=== PATIENT | male | born 1970 | race Caucasian/White ===

== ENCOUNTER 2016-09-14 07:41 | Inpatient (IN) | payer MEDICARE, MEDICAID ==
[~2016-09-14] VITALS: Ht 177.8 cm; Wt 258.0 kg
[2016-09-14] VITALS (11 sets, daily range): BP systolic 108–167; BP diastolic 74–108; PULSE 86–131; RESP 9–27; O2SAT 88–97
[~2016-09-14 07:41] MED LIST: LOV100 SUBQ; LOV60 SUBQ; METO-272 PO; WARF6TAB6 PO
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
[2016-09-14] MEDS ORDERED: Heparin 25K Unit/500mL 0.45 NS 25,000 UNIT in IV Premix 1 EACH IV ONE ×2 (07:55→10:10)
[2016-09-14] MEDS ORDERED: Heparin 5,000 Unit/mL Inj IVPUSH ONE (07:55)
[2016-09-14] MEDS ORDERED: Ondansetron 2 mg/mL 2 mL Inj IVPUSH ONE (08:00)
[2016-09-14] MEDS ORDERED: 0.9% Sodium Chloride 1,000 ML ONE (08:05)
[2016-09-14 08:28] LABS: BASOPHILS % (AUTO) 0.4 % (0-3); EOSINOPHILS % (AUTO) 3.6 % (0-5); MONOCYTES % (AUTO) 3.9 % (4-12); Mean Corpuscular Hemoglobin 30.8 pg (27.0-35.0); Mean Corpuscular Volume 91.3 fL (81-100); Platelet Count 361 bil/L (150-400)
[2016-09-14 08:45] LABS: D-DIMER 1.6 mg/L (<0.50); INR 0.96 ratio
[2016-09-14 09:02] LABS: TROPONIN T < 0.010 ug/L (0.0-0.011)
[2016-09-14 09:04] LABS: Magnesium 2.1 mg/dL (1.6-2.6)
--- NOTE | 2016-09-14 09:37 | DRSVH ---
PROCEDURE: X-RAY CHEST ONE VIEW, PORTABLE ([id number]) INDICATIONS: chest pain TECHNIQUE: One view of the chest was acquired. COMPARISON: [facility], CR, XR CHEST 1VW (PORTABLE), 07/20/2016, 12:20. FINDINGS: Surgical changes and devices: None. Lungs and pleura: Limited exam. Within these limits, no pleural effusions or pneumothorax. Lungs a re clear. Mediastinum: Mediastinal contours appear normal. Heart size is normal. Bones and chest wall: No suspicious bony lesions. Overlying soft tissues appear unremarkable. IMPRESSION: Limited exam secondary to patient's body habitus and low lung volumes demonstrates no def inite acute cardiopulmonary process. Dictated by: Domenico Walls RR Interpreted: Marlen Shankar MD on 09/14/2016 at 9:37 Transcribed by: JEFFREY on 09/14/2016 at 9:37 Approved by: Marlen Shankar M.D. on 09/14/2016 at 16:12
[2016-09-14] MEDS: HYDROmorphone 0.5 mg/0.5 mL iSecure Syringe IVPUSH PRN (10:06)
[2016-09-14] MEDS ORDERED: Ondansetron 2 mg/mL 2 mL Inj IVPUSH PRN (10:10)
[2016-09-14] MEDS ORDERED: Polyethylene Glycol (PEG) 17 Gm Powder PO PRN (10:10)
[2016-09-14] MEDS ORDERED: Alum-Mag Hydrox-Simeth 30 mL Suspension PO PRN (10:10)
[2016-09-14] MEDS ORDERED: HYDROmorphone 1 mg/mL Inj IVPUSH ONE (10:50)
--- NOTE | 2016-09-14 11:30 | DRSVH ---
[facility] [address] [place] [address] Echocardiogram Report Name: ESEQUIEL SEBASTIAN RStudy Date: 09/14/2016 Height: 70 in Hospital Exam Location: [facility] Weight: 551 lb Gender: Male BSA: 3.2 m2 : 1970 Age: 46 yrs BP: 128/89 m mHg Reason For Study: CHEST PAIN, PULMONARY EMBOLISM Performed By: George Chilel Referring Physician: JACY PONCE Interpretation Summary No meaningful data could be acquired secondary to patient's body habitus. Patient said he had an allergic reaction to Definity/perflutren last time it was used. Therefore, it was not used on today's exam. Procedure: A two-dimensional transthoracic echocardiogram with color flow and Doppler was performed in limited views only. The study quality was technically difficult. The patient was in sinus tachycardia with heart rates between 101-106 bpm during the exam. Electronically signed by: Robby Martin on Reading Physician:09/14/2016 11:29 AM
--- NOTE | 2016-09-14 11:42 | DRSVH ---
PROCEDURE: US VENOUS LEG DUPLEX BILATERAL INDICATIONS: eval for DVT, CP +Dimer TECHNIQUE: Real-time imaging, as well as color and pulse Doppler interrogation, were performed of the deep veins of both legs from the inguinal ligament to the popliteal fossa. COMPARISON: [facility], US, US VENOUS LEG DPLX BILAT, 07/20/2016, 16:56. FINDINGS: The deep veins are normally compressible, and free of intraluminal thrombus. Color and pu lse Doppler demonstrate normal phasic intravascular flow. There is normal augmentation response to d istal compression maneuver. IMPRESSION: No deep venous thrombosis identified within either the left or right lower extremities. Dictated by: Domenico RAPP Interpreted: Marlen Shankar MD on 09/14/2016 at 11:41 Transcribed by: JEFFREY on 09/14/2016 at 11:41 Approved by: Marlen Shankar M.D. on 09/14/2016 at 16:31
--- NOTE | 2016-09-14 13:51 | PCM.HPMED ---
Subjective Date of Service Sep 14, 2016 Primary Provider: Admitting Physician: Jose Morrow DO Primary Care Physician: Saleem Garcia MD Attending Physician: Jose Morrow DO Chief Complaint: sharp chest pain History of Present Illness: Patient is a 46yom with MHx significant for super-morbid obesity, sedentary lifestyle, history of PE, atrial fibrillation, and noncompliance on warfarin reported sharp chest pain early this morning. Per patient, he states pain is localized to Left chest, just below the nipple that started at 430am and woke him up. He further states that pain occurs with deep inspiration only. No exertional chest pain or SOB, nor palpitation. He denies any recent trauma, overuse of Left arms. There is a history of smoking, but no diagnose of COPD. Patient is on chronic warfarin due to history of DVT and paroxysmal atrial fibrillation, however decided to skip INR check appointments. Patient had difficulty mobilization and transportation. Review of Systems: A comprehensive review of systems was conducted with the patient and found to be negative except as above in the History of Present Illness. Allergies Coded Allergies: TAPE (Verified Allergy, Severe, blisters, 09/14/16) cephalexin (Verified Allergy, Severe, severe mouth/genital blistering, ) clindamycin (Verified Allergy, Severe, severe throat burning--> inability to breathe, 09/14/16) iodine (Verified Allergy, Severe, diarrhea, nausea,vomitting, 09/14/16) povidone (Verified Allergy, Severe, rapid a fib, 09/14/16) prednisone (Verified Allergy, Severe, rapid a fib, 09/14/16) tetracycline (Verified Allergy, Severe, Hives, 09/14/16) benztropine (Verified Allergy, Unknown, 09/14/16) Home Medications Current medications per [employer] Metoprolol succinate 50 mg daily Warfarin 12 mg daily PMH Stasis dermatitis Objective sleep apnea on CPAP Pulmonary embolism Morbid obesity Multiple episode of S/P SVT Hypothyroidism Hypertension Gout GERD Depression Congestive heart failure Chronic leg wounds bilaterally Cellulitis of the right foot in 2007 Atrial fibrillation Asthma Surgical History Denies any surgical Hx Family History Family history of anxiety, depression Grandparents with heart disease and hypertension Father with hypertension, CAD, diabetes Mother with hypertension Sister with hypertension and anxiety Social History Hx Alcohol Use: No Hx Substance Use: No Hx Tobacco Use: Yes Smoking Status: Former Smoker Exam Vital Signs Vital Sign - Last Date Time Temp Pulse Resp B/P Pulse Ox O2 Delivery O2 Flow Rate FiO2 09/14/16 13:06 37.4 109 20 140/108 93 Room Air 09/14/16 11:51 2 Exam Gen: sitting comfortably on bariatric bed. no noted conversational dyspnea. Morbid obese HEENT: Normocephalic, atraumatic. External ears without defect. Pupils equal, round, and reactive to light and accommodation. Anicteric sclerae, moist conjunctivae, and no lid lag. Neck: Supple, no jvd Cardio: rrr, no murmur, rub, or gallop. Difficult to auscultate due to body habitus Pulm: Bilateral lungs sound, no crackles, wheezes, rhonchi noted. Again difficult to auscultate due to body habitus Abd: Positive bowel sounds, soft, nontender, obese Extremities: Bilateral lower leg nonpitting edema, discern deposit both posterior lower leg. Skin: Normal temperature, turgor, and texture; no rash, ulcers, or subcutaneous nodules appreciated. Neuro: Cranial nerves grossly intact. Normal muscle strength, tone, and bulk. No known gait impairment. Psyc: Normal mood and affect. Alert and oriented to person, place, and time. Lab and Diagnostics Result Diagram: 09/14/1681409/14/16814 X-Rays, CTs and MRIs PROCEDURE: US VENOUS LEG DUPLEX BILATERAL INDICATIONS: eval for DVT, CP +Dimer FINDINGS: The deep veins are normally compressible, and free of intraluminal thrombus. Color and pulse Doppler demonstrate normal phasic intravascular flow. There is normal augmentation response to distal compression maneuver. IMPRESSION: No deep venous thrombosis identified within either the left or right lower extremities. Dictated by: Domenico RAPP Interpreted: Marlen Shankar MD on 09/14/2016 at 11: 41 PROCEDURE: X-RAY CHEST ONE VIEW, PORTABLE FINDINGS: Surgical changes and devices: None. Lungs and pleura: Limited exam. Within these limits, no pleural effusions or pneumothorax. Lungs are clear. Mediastinum: Mediastinal contours appear normal. Heart size is normal. Bones and chest wall: No suspicious bony lesions. Overlying soft tissues appear unremarkable. IMPRESSION: Limited exam secondary to patient's body habitus and low lung volumes demonstrates no definite acute cardiopulmonary process. Dictated by: Domenico RAPP Interpreted: Marlen Shankar MD on 09/14/2016 at 9:37 Cardiac Echo Impressions Echocardiogram Report Reason For Study: CHEST PAIN, PULMONARY EMBOLISM Interpretation Summary No meaningful data could be acquired secondary to patient's body habitus. Patient said he had an allergic reaction to Definity/perflutren last time it was used. Therefore, it was not used on today's exam. Electronically signed by: Robby Martin on Assessment & Plan Patient is a 46yom with MHx significant for super-morbid obesity, sedentary lifestyle, history of PE, atrial fibrillation, and noncompliance on warfarin reported sharp left chest pain early this morning. Patient is admitted for high probability of pulmonary embolism. Pulmonary embolism, present on admission, active -- Assumed PE in the setting of pleuritic chest pain, immobility, elevated D- dimer, subtherapeutic INR and WELLS score 7.5 -- Unable to define diagnose by other modality given body habitus. Past diagnosed of PE were presumptive. -- BNP wnl, no signs of congestive heart. Venous duplex unremarkable. -- Likely, patient has strained muscle, possible costochondritis. Anxiety exacerbated symptoms. -- Started patient on heparin dip and warfarin. -- Ibuprofen, breakthrough pain: Percocet 5-325mg Paroxysmal Atrial fibrillation, present admission, ongoing -- Anticoagulate with warfarin/heparin -- Rate control with metoprolol XL 50mg daily Hypertension, present on admission, ongoing -- Cont home metoprolol XL as above -- Telemetry on Super morbid obese, present on admission, ongoing -- Weight partially due to lymphedema. -- Will consult dietitian for weight lost program and follow-ups -- Patient will benefit from bariatric surgery should he fail dietary intervention Lymphadenia Stage III, present on admission, ongoing -- Present of lymphostatic elephantiasis -- Likely obstructive 2nd to morbid obesity -- Order pneumatic compression and PT to help mobilize fluids. Obstructive sleep apnea, present admission, ongoing -- Ordered CPAP/BPAP -- Placed on O2 monitor, NS as needed Leukocytosis, Present on admission, ongoing -- No signs or symptoms of suspected infection. Neurophilic mildly elevated -- Likely stressed induced. -- Monitor, CBC in AM Bowel regiment as needed Antinausea as needed Patient is admitted under observation status with expected length of stay LESS than 2 midnights due to severity of presenting symptoms, risk of adverse event, and complexity of treatment plan. VTE Prophylaxis Indicated: Meets Criteria for Anticoag Therapy VTE Prophylaxis: SCDs Resuscitation Status: DNR/DNI:Do Not Resuscitate/Intubate (DO NOT RESUSCITATE) Time spent 50 minutes Attending Statement I have seen and evaluated patient at bedside in addition to directly supervising care provided by resident physician. I agree with above documentation. Alex Paredes DO Sep 14, 2016 13:51 Jose Morrow DO Sep 15, 2016 08:35
--- NOTE | 2016-09-14 14:07 | NUR ---
ADMIT Patient admitted to [facility] at 1130, oriented to room and hospital policies. Heparin drip running at 90ml/hr, Striker bed obtain and patient comfortably at rest on it, NS @100. Med rec done, awaiting orders from hospitalist. Patient denies pain except right rib pain on deep inspiration.
--- NOTE | 2016-09-14 15:04 | PCM.PHAPRO ---
Progress Patient is a 46yom with MHx significant for super-morbid obesity, sedentary lifestyle, history of PE, atrial fibrillation, and noncompliance on warfarin reported sharp left chest pain early this morning. Patient was placed on chronic warfarin due to history of DVT and atrial fibrillation, however decided to skip INR check appointments.Patient admits to difficulty mobilization and transportation. WARFARIN DOSING PER PHARMACY Indication: Hx DVT, Afib Home dose: 12 mg PO daily INR goal: 2-3 DI: N/A Antiplatelet therapy: N/A Bridging: Heparin drip to treat suspected DVT Note: - Pt is morbidly obese and has hx of noncompliance with warfarin checks Lab Date Result Dose INR 09/14/16 0.96 Plan: - Will give one dose of warfarin 10 mg PO tonight - Pharmacy will monitor INR/CBC/signs and symptoms of bleeding Alexandrea Rivas PharmD Sep 14, 2016 15:04
[2016-09-14] MEDS: oxyCODONE-Acetamin 5-325 mg Tablet PO PRN (16:42)
--- NOTE | 2016-09-14 19:32 | NUR ---
DNR/DNI In room w Dr Hill: Pt wishes to be DNR/DNI Addendum: 09/14/16 at 2320 by JAI SEXTON RN Lena Meier Dr
[2016-09-14] MEDS: Heparin 25K Unit/500mL 0.45 NS 25,000 UNIT in IV Premix 1 EACH IV SCH (21:24)
[2016-09-15] VITALS (7 sets, daily range): BP systolic 112–140; BP diastolic 68–88; PULSE 71–102; RESP 18–20; O2SAT 93–97
--- NOTE | 2016-09-15 | NUR ---
Says pain is near surface of skin , not deep inside chest . Addendum: 09/15/16 at 0002 by JAI SEXTON RN Amended: Links added.
[2016-09-15] MEDS: oxyCODONE-Acetamin 5-325 mg Tablet PO PRN ×2 (03:01→07:57)
[2016-09-15] MEDS: HYDROmorphone 0.5 mg/0.5 mL iSecure Syringe IVPUSH PRN (03:41)
[2016-09-15] MEDS: Heparin 25K Unit/500mL 0.45 NS 25,000 UNIT in IV Premix 1 EACH IV SCH ×2 (04:50→11:59)
--- NOTE | 2016-09-15 06:06 | NUR ---
Pain/Heparin Gtt/ SOB Pt has had intermittent intense pain i left shoulder and directly under left breast , pain radiated through ribs impairing ability to take deep breath, Gave 5 Mg Oxycodone PO, 0.5 Mg Dilaudid IV, with limited results ,. Called Hospitalist , gave 1 Mg IV Lorazepam and applied heat . Pt is able to ambulate to toilet with IV trailing , is able to self transfer despite weighing 250 Kg. Is not able to be affectively turned , may be muscle cramping. Heparin Gtt was ordered without following labs series , 0200 lab was late , ordered stat , ordered 0815 Ptt heparin for 24 hr series . Heparin Gtt @ 17 U/Kg/Hr PE/DVT protocol on 2 L O2 per NC has extensive lymphedema Tele SR - S-Tach , Addendum: 09/15/16 at 0650 by JAI SEXTON RN Pt states heat and IV lorazepam ineffective for his pain , is unable to take deep breath , is on 2 L O2 per NC satting 98%
[2016-09-15 07:26] LABS: INR 1.03 ratio
[2016-09-15] MEDS: MeTOProlol XL 50 mg ER24 Tablet PO SCH (07:56)
[2016-09-15 08:09] LABS: BASOPHILS % (AUTO) 0.5 % (0-3); EOSINOPHILS % (AUTO) 2.8 % (0-5); MONOCYTES % (AUTO) 7.4 % (4-12); Mean Corpuscular Hemoglobin 31.1 pg (27.0-35.0); Mean Corpuscular Volume 91.2 fL (81-100); Platelet Count 310 bil/L (150-400)
[2016-09-15] MEDS ORDERED: hydrOXYzine Pamoate 25 mg Capsule PO PRN (08:15)
--- NOTE | 2016-09-15 08:15 | PCM.PNMED ---
Subjective Date of Service Sep 15, 2016 Subjective Overnight, patient complaint of focal Left sided chest pain. Uncontrolled. One dose of hydromorphone (remnantof ED order) given. Made patient "loopy" however. Exam Vital Signs Vital Sign - Last Date Time Temp Pulse Resp B/P Pulse Ox O2 Delivery O2 Flow Rate FiO2 09/15/16 04:43 37.3 85 18 140/88 94 Room Air 09/15/16 01:36 2.00 Intake and Output 09/14/16 09/14/16 09/15/16 Cumulative From/Thru 15:00 23:00 07:00 09/14/16 07:49 - 09/15/16 06:39 Intake Total 1900 ml 1313 ml 3213 ml Balance 1900 ml 1313 ml 3213 ml Intake Oral 400 ml 300 ml 700 ml IV Total 1500 ml 1013 ml 2513 ml # Voids 2 2 Exam Gen: sitting comfortably on bariatric bed. no noted conversational dyspnea. Morbid obese HEENT: Normocephalic, atraumatic. External ears without defect. Pupils equal, round, and reactive to light and accommodation. Anicteric sclerae, moist conjunctivae, and no lid lag. Neck: Supple, no jvd Cardio: rrr, no murmur, rub, or gallop. Difficult to auscultate due to body habitus Pulm: Bilateral lungs sound, no crackles, wheezes, rhonchi noted. Again difficult to auscultate due to body habitus Abd: Positive bowel sounds, soft, nontender, obese Extremities: Bilateral lower leg nonpitting edema, discern deposit both posterior lower leg. Skin: Normal temperature, turgor, and texture; no rash, ulcers, or subcutaneous nodules appreciated. Neuro: Cranial nerves grossly intact. Normal muscle strength, tone, and bulk. No known gait impairment. Psyc: Normal mood and affect. Alert and oriented to person, place, and time. IVs and Medications Medications Reviewed: Medications were reviewed in detail Lab and Diagnostics Result Diagram: 09/14/1681409/14/16814 X-Rays, CTs and MRIs PROCEDURE: US VENOUS LEG DUPLEX BILATERAL INDICATIONS: eval for DVT, CP +Dimer FINDINGS: The deep veins are normally compressible, and free of intraluminal thrombus. Color and pulse Doppler demonstrate normal phasic intravascular flow. There is normal augmentation response to distal compression maneuver. IMPRESSION: No deep venous thrombosis identified within either the left or right lower extremities. Dictated by: Domenico RAPP Interpreted: Marlen Shankar MD on 09/14/2016 at 11: 41 PROCEDURE: X-RAY CHEST ONE VIEW, PORTABLE FINDINGS: Surgical changes and devices: None. Lungs and pleura: Limited exam. Within these limits, no pleural effusions or pneumothorax. Lungs are clear. Mediastinum: Mediastinal contours appear normal. Heart size is normal. Bones and chest wall: No suspicious bony lesions. Overlying soft tissues appear unremarkable. IMPRESSION: Limited exam secondary to patient's body habitus and low lung volumes demonstrates no definite acute cardiopulmonary process. Dictated by: Domenico RAPP Interpreted: Marlen Shankar MD on 09/14/2016 at 9:37 Cardiac Echo Impressions Echocardiogram Report Reason For Study: CHEST PAIN, PULMONARY EMBOLISM Interpretation Summary No meaningful data could be acquired secondary to patient's body habitus. Patient said he had an allergic reaction to Definity/perflutren last time it was used. Therefore, it was not used on today's exam. Electronically signed by: Robby Martin on Assessment & Plan Patient is a 46yom with MHx significant for super-morbid obesity, sedentary lifestyle, history of PE, atrial fibrillation, and noncompliance on warfarin reported sharp left chest pain early this morning. Patient is admitted for high probability of pulmonary embolism. Pulmonary embolism, present on admission, active -- Assumed PE in the setting of pleuritic chest pain, immobility, elevated D- dimer, subtherapeutic INR and WELLS score 7.5 -- Unable to define diagnose by other modality given body habitus. Past diagnosed of PE were presumptive. -- BNP wnl, no signs of congestive heart. Venous duplex unremarkable. -- Likely, patient has strained muscle, possible costochondritis. Anxiety exacerbated symptoms. -- Started patient on heparin dip and warfarin. -- Ibuprofen, breakthrough pain: Percocet 5-325mg, add Vistaril for anxiety. -- Baclofen as muscle relaxant. Paroxysmal Atrial fibrillation, present admission, ongoing -- Anticoagulate with warfarin/heparin -- Rate control with metoprolol XL 50mg daily Hypertension, present on admission, ongoing -- Cont home metoprolol XL as above -- Telemetry on Super morbid obese, present on admission, ongoing -- Weight partially due to lymphedema. -- Will consult dietitian for weight lost program and follow-ups -- Patient will benefit from bariatric surgery should he fail dietary intervention Lymphadenia Stage III, present on admission, ongoing -- Present of lymphostatic elephantiasis -- Likely obstructive 2nd to morbid obesity -- Order pneumatic compression and PT to help mobilize fluids. Obstructive sleep apnea, present admission, ongoing -- Ordered CPAP/BPAP -- Placed on O2 monitor, NS as needed Leukocytosis, Present on admission, ongoing -- No signs or symptoms of suspected infection. Neurophilic mildly elevated -- Likely stressed induced. -- Monitor, CBC in AM Bowel regiment as needed Antinausea as needed Disposition: Anticipate patient will likely be here for another day. Barrier to discharge, home warfarin management. I will call anticoagulation to see if there are alternative to bariatric patient. VTE Prophylaxis: SCDs Resuscitation Status: DNR/DNI:Do Not Resuscitate/Intubate (DO NOT RESUSCITATE) Alex Paredes DO Sep 15, 2016 08:15
--- NOTE | 2016-09-15 09:20 | NUR ---
Social Work-initial assessment: Data:See initial assessment. Pt is a 46 y/o male who was admitted on 09/14/16 for CP and PE per H&P. Pt's insurance is [facility] and PCP is Saleem Garcia MD. EMR reviewed. SW met with pt at bedside to discuss discharge planning, SW role explained. Pt is alert and oriented x3. Pt resides at home with his son Arnie where he remains independent with ADls. Pt does not drive and does not use any DME. Pt has no HH or SNF history. Pt has no intermediate care or VA benefits. SW discussed DPOA/ advanced directive paperwork, pt states he has completed this, SW encouraged pt to bring a copy into the hospital. Pt informs SW that he is in so much pain and hopes they will get him feeling better. Pt states his friend Jarvis will be the one to provide transport home. SW provided phone number and plan on white board in room. No anticipated discharge needs. SW will continue to follow if needs arise. Assessment:Pt who is independent at baseline. Plan:Pt to discharge home when medically stable via POV. No anticipated discharge needs. SW will continue to follow if needs arise. SOURAV Hays Addendum: 09/15/16 at 0923 by MARIBEL CARTAGENA Amended: Links added.
--- NOTE | 2016-09-15 09:25 | NUR ---
Pain Pt reports severe pain that he rates at a 7. No improvement noted w/ medications, however pt reported some improvement with ice pack. States that it is difficult to breathe d/t pain. Discussed medication management w/ pt, pt states "I don't care", just wants pain to be gone. Refused position change. Refused skin assessment, stating that pain was too great for him to move. Pt has a yeastlike odor, no redness visualized in axilla or underneath breasts.
--- NOTE | 2016-09-15 10:34 | NUR ---
PT NOTE-- Patient up I'ly. May benefit from outpatient services for lymphedema management when discharged.
[2016-09-15] MEDS ORDERED: oxyCODONE-Acetamin 10-325 mg Tablet PO PRN (11:05)
--- NOTE | 2016-09-15 13:15 | PCM.PNMED ---
Subjective Date of Service Sep 15, 2016 Subjective Overnight, he reports increasing pain, spreading from the mid clavicular, below the nipple line down to ASIS and to the back. He received 1mg Hydromorphone with good effects, but consequently nauseas. Pain is 7/10 today. Exam Vital Signs Vital Sign - Last Date Time Temp Pulse Resp B/P Pulse Ox O2 Delivery O2 Flow Rate FiO2 09/15/16 10:44 102 09/15/16 09:18 Supplement Oxygen 09/15/16 09:14 36.6 19 112/72 96 2.00 Intake and Output 09/14/16 09/14/16 09/15/16 Cumulative From/Thru 15:00 23:00 07:00 09/14/16 07:49 - 09/15/16 06:39 Intake Total 1900 ml 1313 ml 3213 ml Balance 1900 ml 1313 ml 3213 ml Intake Oral 400 ml 300 ml 700 ml IV Total 1500 ml 1013 ml 2513 ml # Voids 2 2 Exam Gen: In pain. guarding his left chest. no noted conversational dyspnea. Morbid obese HEENT: Normocephalic, atraumatic. External ears without defect. Pupils equal, round, and reactive to light and accommodation. Anicteric sclerae, moist conjunctivae, and no lid lag. Neck: Supple, no jvd Cardio: rrr, no murmur, rub, or gallop. Difficult to auscultate due to body habitus Pulm: Bilateral lungs sound, no crackles, wheezes, rhonchi noted. Again difficult to auscultate due to body habitus Abd: Positive bowel sounds, soft, nontender, obese Extremities: Bilateral lower leg nonpitting edema, discern deposit both posterior lower leg. Skin: Normal temperature, turgor, and texture; no rash, ulcers, or subcutaneous nodules appreciated. Musculoskeletal: tenderness around Right 5th rib down to ASIS. No rashes seen Neuro: Cranial nerves grossly intact. Normal muscle strength, tone, and bulk. No known gait impairment. Psyc: Normal mood and affect. Alert and oriented to person, place, and time. IVs and Medications Medications Reviewed: Medications were reviewed in detail Lab and Diagnostics Result Diagram: 09/15/1614 09/15/16713 X-Rays, CTs and MRIs PROCEDURE: US VENOUS LEG DUPLEX BILATERAL INDICATIONS: eval for DVT, CP +Dimer FINDINGS: The deep veins are normally compressible, and free of intraluminal thrombus. Color and pulse Doppler demonstrate normal phasic intravascular flow. There is normal augmentation response to distal compression maneuver. IMPRESSION: No deep venous thrombosis identified within either the left or right lower extremities. Dictated by: Domenico RAPP Interpreted: Marlen Shankar MD on 09/14/2016 at 11: 41 PROCEDURE: X-RAY CHEST ONE VIEW, PORTABLE FINDINGS: Surgical changes and devices: None. Lungs and pleura: Limited exam. Within these limits, no pleural effusions or pneumothorax. Lungs are clear. Mediastinum: Mediastinal contours appear normal. Heart size is normal. Bones and chest wall: No suspicious bony lesions. Overlying soft tissues appear unremarkable. IMPRESSION: Limited exam secondary to patient's body habitus and low lung volumes demonstrates no definite acute cardiopulmonary process. Dictated by: Domenico RAPP Interpreted: Marlen Shankar MD on 09/14/2016 at 9:37 Cardiac Echo Impressions Echocardiogram Report Reason For Study: CHEST PAIN, PULMONARY EMBOLISM Interpretation Summary No meaningful data could be acquired secondary to patient's body habitus. Patient said he had an allergic reaction to Definity/perflutren last time it was used. Therefore, it was not used on today's exam. Electronically signed by: Robby Martin on Assessment & Plan Patient is a 46yom with MHx significant for super-morbid obesity, sedentary lifestyle, history of PE, atrial fibrillation, and noncompliance on warfarin reported sharp left chest pain early this morning. Patient is admitted for high probability of pulmonary embolism. Left rib pain, present on admission, active - Pain initially focal to Left 5th rib, spread to back and down the flanks 24hrs after admission, elevated WBC and tachycardic, not febrile however. -- Uncertain of etiology, possible UTI, renal stones, or retroperitoneal related. -- UA/reflex ordered. -- Consider abd US. -- Ibuprofen, breakthrough pain: Percocet 10-325mg, add Vistaril for anxiety. -- Baclofen as muscle relaxant. Leukocytosis, Present on admission, ongoing -- Neutrophilic shift and tachycardic. Technically meets SIRS criteria, uncertain of source however. -- Monitor, CBC in AM Pulmonary embolism, present on admission, active -- Assumed PE in the setting of pleuritic chest pain, immobility, elevated D- dimer, subtherapeutic INR and WELLS score 7.5 on presentation -- Unable to define diagnose by other modality given body habitus. Past diagnosed of PE were presumptive. -- BNP wnl, no signs of congestive heart. Venous duplex unremarkable. -- Received 24hrs Heparin drip -- Switch to rivaroxaban 15mg BID. Dosage and current recommendation does not include BMI 85. However, given the inherit risk of recurring PE, stroke (due to proxymal afib), and the medication non-compliance to warfarin. Our best option is rivaroxaban. Should patient fail on this novel anticoagulant, we would reevaluate the efficacy of current dose. -- D/C heparin drip and warfarin. Paroxysmal Atrial fibrillation, present admission, ongoing -- Anticoagulate with warfarin/heparin -- Rate control with metoprolol XL 50mg daily -- Placed on telemetry Hypertension, present on admission, ongoing -- Cont home metoprolol XL as above -- Telemetry on Super morbid obese, present on admission, ongoing -- Weight partially due to lymphedema. -- Will consult dietitian for weight lost program and follow-ups -- Patient will benefit from bariatric surgery should he fail dietary intervention Lymphadenia Stage III, present on admission, ongoing -- Present of lymphostatic elephantiasis -- Likely obstructive 2nd to morbid obesity -- Order pneumatic compression and PT to help mobilize fluids. Obstructive sleep apnea, present admission, ongoing -- Ordered CPAP/BPAP -- Placed on O2 monitor, NS as needed Bowel regiment as needed Antinausea as needed Disposition: Anticipate patient will likely be here for another day. Patient may have an active infection. VTE Prophylaxis: SCDs Resuscitation Status: DNR/DNI:Do Not Resuscitate/Intubate (DO NOT RESUSCITATE) Time spent 25 minutes Attending Statement I have seen and examined patient at bedside in addition to directly supervising care provided by resident physician. I agree with above documentation. Alex Paredes DO Sep 15, 2016 13:15 Jose Morrow DO Sep 16, 2016 07:21
--- NOTE | 2016-09-15 14:38 | NUR ---
Case Management: Clarification of patient status: Inpatient from 09/14/16 per MD order. Anna Do RN
--- NOTE | 2016-09-15 15:43 | NUR ---
Pain Relief Pt found pain relief by sitting up on couch and leaning across table. Sat up on couch for several hours. Now back to bed. Denies pain and thinks he can go home tomorrow. Medicated w/ scheduled ibuprofen in anticipation that pain will return. Pt drowsy. HOB at 45 degrees, O2 sats high 90's on 1L O2.
--- NOTE | 2016-09-15 16:10 | NUR ---
Case Management: IMM explained to patient at 1530, signed copy placed in chart, copy given to patient. Jackie Murillo RN
[2016-09-15 19:41] LABS: APPEARANCE,URINE CLEAR (CLEAR,HAZY); COLOR,URINE DARK YELLOW (YELLOW); OCCULT BLOOD,URINE TRACE (NEGATIVE); PH,URINE 5.5 (5.0-8.0)
[2016-09-16] VITALS (8 sets, daily range): BP systolic 123–151; BP diastolic 67–83; PULSE 9–97; RESP 20–22; O2SAT 92–97
--- NOTE | 2016-09-16 04:56 | NUR ---
activity Pt remained in bed for the shift, slept well. No pain or discomfort. Will continue to monitor.
[2016-09-16 07:44] LABS: BASOPHILS % (AUTO) 0.4 % (0-3); EOSINOPHILS % (AUTO) 3.2 % (0-5); MONOCYTES % (AUTO) 8.8 % (4-12); Mean Corpuscular Volume 92.4 fL (81-100); Platelet Count 223 bil/L (150-400)
[2016-09-16] MEDS: MeTOProlol XL 50 mg ER24 Tablet PO SCH (09:05)
--- NOTE | 2016-09-16 13:04 | NUR ---
Social Work: Readiness for d/c Data: Pt is on day 2 of hospitalization. EMR reviewed, pt discussed in rounds. MD states pt likely to d/c today. MD provided prescription for pt for Xarelto to run for pt's insurance benefit. PRODUCE LABORER spoke with pt who states [facility] is his preferred pharmacy. PRODUCE LABORER called pharmacy requesting a call back regarding pt's insurance coverage for prescription. PRODUCE LABORER faxed Facesheet and prescription to pharmacy and awaiting phone call. PRODUCE LABORER will continue to follow. Assessment: Pt who is independent at baseline. Plan: Pt iwll d/c home via POV, likely today. PRODUCE LABORER awaiting phone call from [facility] regarding pt prescription benefit. PRODUCE LABORER will continue to follow. SOURAV Blackburn
--- NOTE | 2016-09-16 14:32 | NUR ---
Social Work: Continued d/c planning Data: Pt is on day 2 of hospitalization. FINISHER SCREWDOWN spoke with who attempted to call the phone number given to FINISHER SCREWDOWN by [facility] to request approval for pt's medication needs, . spoke with FINISHER SCREWDOWN stating that he did not have the correct insurance number for pt. FINISHER SCREWDOWN met with pt at bedside to request his insurance cards, pt provided both his Medicare and medication cards. FINISHER SCREWDOWN made a copy of these cards and brought pt back his cards. FINISHER SCREWDOWN spoke with MD who requested FINISHER SCREWDOWN call the phone number and wait on hold then transfer the call to him. UR specialist states she will do this responsibility. FINISHER SCREWDOWN will continue to follow. Assessment: Pt who is independent at baseline. Plan: Pt will d/c home via POV when medically stable, likely today. MD to speak with pt's medication insurance regarding medical necessity for this prescription. FINISHER SCREWDOWN will continue to follow. SOURAV Blackburn
--- NOTE | 2016-09-16 14:51 | NUR ---
Called [facility] [phone], received fax preauthorization for this medication. Completed form and had MD fill in his part. Faxed back to [phone], marked URGENT on cover sheet. Updated FELT STRIP FINISHER
--- NOTE | 2016-09-16 15:17 | PCM.DIMED ---
LenaAlex H DO 09/16/16 1355: Discharge Instructions Date of Service Sep 16, 2016 Dates of Hospitalization Sep 14, 2016 at 11:43 Discharge Diagnosis Discharge Diagnosis Left rib pain, present on admission, resolved Leukocytosis, Present on admission, Pulmonary embolism, present on admission, active Paroxysmal Atrial fibrillation, present admission, ongoing Hypertension, present on admission, ongoing Super morbid obese, present on admission, ongoing Lymphadenia Stage III, present on admission, ongoing Obstructive sleep apnea on CPAP, present admission, stable Heart Failure, likely diastolic, stable Medication Instructions Please discontinue warfarin Please start taking your Xarelto. 15 mg tablet in the morning 15 mg tablet in the evening As discussed before, due to the inherent difficulty of placing you on warfarin, we will start treating you with Xarelto. You will not need to monitor your INR. This medication however, has not been research in patient who weighs more than 120 kg, thus, there is a risk that we may under treat you. Additionally, we cannot reverse the effects of this medication should you bleed. There is an increase risk of gastrointestinal bleeding as discussed. Please read below for more information. Xarelto (rivaroxaban) is an anticoagulant (blood thinner) that prevents the formation of blood clots. Xarelto is used to prevent or treat a type of blood clot called deep vein thrombosis (DVT), which can lead to blood clots in the lungs (pulmonary embolism ). A DVT can occur after certain types of surgery. What happens if I miss a dose? If you take Xarelto 1 time each day: Take the missed dose as soon as you remember. Take your next dose the following day and stay on your once-daily schedule. Do not take extra medicine to make up the missed dose. If you take Xarelto 2 times each day: Take the missed dose as soon as you remember. You may take 2 doses at the same time to make up a missed dose Xarelto side effects Get emergency medical help if you have any signs of an allergic reaction to Xarelto: hives; difficult breathing; swelling of your face, lips, tongue, or throat. Also seek emergency medical attention if you have symptoms of a spinal blood clot: back pain, numbness or muscle weakness in your lower body, or loss of bladder or bowel control. Call your doctor at once if you have: * easy bruising or bleeding (nosebleeds, bleeding gums, heavy menstrual bleeding ); * pain, swelling, or drainage from a wound or where a needle was injected in your skin; * bleeding from wounds or needle injections, any bleeding that will not stop; * headache, dizziness, weakness, feeling like you might pass out; * urine that looks red, pink, or brown; or * bloody or tarry stools, coughing up blood or vomit that looks like coffee grounds. Common Xarelto side effects may include: * muscle pain; * itching; or * pain in your arms or legs. Diet Other (Low carbohydrate diet. ) Activity No restrictions Call your provider Fever or Chills, Shortness of breath, Bleeding, Chest pain, Weakness (unilateral ) Patient Instructions Follow-up Provider: Saleem Garcia MD Follow-up with PCP in: 1 week Jose Morrow DO 09/18/16 1150: Discharge Instructions Attending's Statement Read and agree Alex Paredes DO Sep 16, 2016 13:55 Jose Morrow DO Sep 18, 2016 11:50
[2016-09-16] MEDS ORDERED: RIVA15TA PO (15:19)
[2016-09-17 02:20] VITALS: BP 137/76; PULSE 94; RESP 20; O2SAT 92
--- NOTE | 2016-09-17 02:51 | NUR ---
Back Pain Pt complained of back pain 2/10 in left lower lobe proximity with inhalation/exhalation. Pt reports pain increases while sitting up in chair. MD aware. Will continue to monitor.
[2016-09-17 05:38] VITALS: PULSE 88
[2016-09-17 06:54] VITALS: BP 144/90; PULSE 98; RESP 20; O2SAT 95
[2016-09-17 08:00] VITALS: PULSE 105
[2016-09-17] MEDS: MeTOProlol XL 50 mg ER24 Tablet PO SCH (08:15)
[2016-09-17 09:00] VITALS: BP 142/82; PULSE 91; RESP 20; O2SAT 95
--- NOTE | 2016-09-17 09:09 | NUR ---
Called [facility] back this morning and verified our information for DO. They are still processing this request and it will reach 24 hours today. They do have it marked as priority and they will attempt to have this done today. Updated PLANNING AIDE
--- NOTE | 2016-09-17 12:44 | NUR ---
Social Work: Discharge Data: Pt is on day 3 of hospitalization. EMR reviewed, pt d/c orders are in. Insurance authorization for pt's prescription has not yet come through. has decided that pt is ready for d/c and that the prescription will be followed up by hospital staff. FUNERAL HOME ASSISTANT and UR specialist will continue to follow and will update pt post d/c about insurance authorization for prescription. FUNERAL HOME ASSISTANT will continue to follow. Assessment: Pt how is independent at baseline. Plan: Pt will d/c home via POV today. FUNERAL HOME ASSISTANT and UR specialist will continue to follow and will update pt post d/c about insurance authorization for prescription. FUNERAL HOME ASSISTANT will continue to follow. SOURAV Blackburn
--- NOTE | 2016-09-17 12:50 | NUR ---
Discharge Reviewed d/c instructions with pt including care notes and new prescription, pt signed and given originals, copies to chart. IV d/c intact (yest), tele removed. VS stable at time of d/c. All belongings packed by pt and taken with him. Pt taken off unit via WC by DEIDRA to wait in 1st floor lobby for ride to come.
--- NOTE | 2016-09-17 12:58 | PCM.DC.MED ---
Discharge Summary Date of Service Sep 17, 2016 Dates of Hospitalization Date of Hospital Admission Sep 14, 2016 at 11:43 Date of Discharge: Sep 17, 2016 Providers: Admitting Physician: Jose Morrow DO Primary Care Physician: Saleem Garcia MD Attending Physician: Jose Morrow DO Diagnosis at Time of Discharge Diagnosis at Time of Discharge Left rib pain, present on admission, resolved Leukocytosis, Present on admission, Pulmonary embolism, present on admission, active Paroxysmal Atrial fibrillation, present admission, ongoing Hypertension, present on admission, ongoing Super morbid obese, present on admission, ongoing Lymphadenia Stage III, present on admission, ongoing Obstructive sleep apnea on CPAP, present admission, stable Heart Failure, likely diastolic, stable Procedures XRay, CTs & MRIs PROCEDURE: US VENOUS LEG DUPLEX BILATERAL INDICATIONS: eval for DVT, CP +Dimer FINDINGS: The deep veins are normally compressible, and free of intraluminal thrombus. Color and pulse Doppler demonstrate normal phasic intravascular flow. There is normal augmentation response to distal compression maneuver. IMPRESSION: No deep venous thrombosis identified within either the left or right lower extremities. Dictated by: Domenico RAPP Interpreted: Marlen Shankar MD on 09/14/2016 at 11: 41 PROCEDURE: X-RAY CHEST ONE VIEW, PORTABLE FINDINGS: Surgical changes and devices: None. Lungs and pleura: Limited exam. Within these limits, no pleural effusions or pneumothorax. Lungs are clear. Mediastinum: Mediastinal contours appear normal. Heart size is normal. Bones and chest wall: No suspicious bony lesions. Overlying soft tissues appear unremarkable. IMPRESSION: Limited exam secondary to patient's body habitus and low lung volumes demonstrates no definite acute cardiopulmonary process. Dictated by: Domenico RAPP Interpreted: Marlen Shankar MD on 09/14/2016 at 9:37 Cardiac Echo Impression Echocardiogram Report Reason For Study: CHEST PAIN, PULMONARY EMBOLISM Interpretation Summary No meaningful data could be acquired secondary to patient's body habitus. Patient said he had an allergic reaction to Definity/perflutren last time it was used. Therefore, it was not used on today's exam. Electronically signed by: Robby Martin on Brief History Patient is a 46yom with MHx significant for super-morbid obesity, sedentary lifestyle, history of PE, atrial fibrillation, and noncompliance on warfarin reported sharp chest pain early this morning. Per patient, he states pain is localized to Left chest, just below the nipple that started at 430am and woke him up. He further states that pain occurs with deep inspiration only. No exertional chest pain or SOB, nor palpitation. He denies any recent trauma, overuse of Left arms. There is a history of smoking, but no diagnose of COPD. Patient is on chronic warfarin due to history of DVT and paroxysmal atrial fibrillation, however decided to skip INR check appointments. Patient had difficulty mobilization and transportation. Hospital Course Patient is a 46yom with MHx significant for super-morbid obesity, sedentary lifestyle, history of PE, atrial fibrillation, and noncompliance on warfarin reported sharp left chest pain early this morning. Patient is admitted for high probability of pulmonary embolism. His symptoms rapidly improved after 24hrs heparin drip. Patient has failed Coumadin. Spoken to to anticoagulation clinic which suggests trying rivaroxaban 15mg BID, the maximum dose noted. Patient is aware of the risk benefit involved, and has agreed with the plan. Left rib pain, present on admission, resolved - Pain initially focal to Left 5th rib, spread to back and down the flanks 24hrs after admission, elevated WBC and tachycardic, not febrile however. -- Uncertain of etiology, UA did not suggest renal stones or infections -- Patient did well on baclofen and ibuprofen. Pain since resolved. Leukocytosis, Present on admission, resolved -- Neutrophilic shift and tachycardic. Technically meets SIRS criteria, uncertain of source however. -- likely stressed induced. -- Monitor, CBC in AM Pulmonary embolism, present on admission, stable -- Strong clinical suspicion for PE in the setting of pleuritic chest pain, immobility, elevated D-dimer, subtherapeutic INR and WELLS score 7.5 on presentation -- Has hx of PE based on strong clinical assumption as well. -- BNP wnl, no signs of congestive heart. Venous duplex unremarkable on this admission -- Received 24hrs Heparin drip, chest pain resolved -- Switch to rivaroxaban 15mg BID. Dosage and current recommendation does not include BMI 85. However, given the inherit risk of recurring PE, stroke (due to proxymal afib), and the medication non-compliance to warfarin. Our best option is rivaroxaban. Should patient fail on this novel anticoagulant, we would reevaluate the efficacy of current dose. -- D/C Warfarin Paroxysmal Atrial fibrillation, present admission, stable -- Rate control with metoprolol XL 50mg daily -- Discharged on rivaroxaban as noted above Super morbid obese, present on admission, ongoing -- Weight partially due to lymphedema. -- Will consult dietitian for weight lost program and follow-ups -- Patient will benefit from bariatric surgery should he fail dietary intervention. Consider out patient dietitian follow-up Lymphadenia Stage III, present on admission, ongoing -- Present of lymphostatic elephantiasis -- Likely obstructive 2nd to morbid obesity -- Recommended that patient start with water exercise at the [facility] Obstructive sleep apnea, present admission, ongoing -- Ordered CPAP/BPAP -- Placed on O2 monitor, NS as needed Hypertension, present on admission, stable -- Cont home metoprolol XL as above Discharged was not under favorable condition due to pending approval for his Xarelto 15mg BID from his insurance. Patient received his second dose of Xarelto prior to discharge. Will have most likely have approval from insurance for Xarelto by tomorrow and will contact the patient. Exam Vital Signs (Last) Date Time Temp Pulse Resp B/P Pulse Ox O2 Delivery O2 Flow Rate FiO2 09/17/16 09:00 37.1 91 20 142/82 95 Room Air 09/15/16 16:39 1.00 Test 09/14/16 08:15 09/15/16 06:34 09/15/16 07:14 09/15/16 12:42 D-Dimer 1.6mg/L (<0.50) Magnesium Level 2.1mg/dL (1.6-2.6) Troponin T < 0.010ug/L (0.0-0.011) Pro-B-Type Natriuretic Peptide 36.52pg/mL (0-121) Hold Jewell Top Tube Received (Received) Prothrombin Time 11.0sec (8.1-12.5) Prothromb Time International Ratio 1.03ratio Sodium Level 137mEq/L (134-144) Potassium Level 5.1mEq/L (3.5-5.2) Chloride Level 102mEq/L (97-108) Carbon Dioxide Level 21mmol/L (18-29) Blood Urea Nitrogen 15mg/dL (6-24) Creatinine 1.09mg/dL (0.76-1.27) Estimat Glomerular Filtration Rate 78mL/min (>59) Glucose Level 114mg/dL (60-99) Calcium Level 8.7mg/dL (8.5-10.1) Total Bilirubin 0.8mg/dL (0.0-1.2) Aspartate Amino Transf (AST/SGOT) 33U/L (0-50) Alanine Aminotransferase (ALT/SGPT) 55U/L (0-44) Alkaline Phosphatase 49U/L (25-150) Total Protein 7.5g/dL (6.4-8.4) Albumin 3.5g/dL (3.4-5.0) Activated Partial Thromboplast Time 77.3sec (22.8-33.0) Test 09/15/16 19:26 09/16/16 07:20 Urine Color Dark yellow (YELLOW) Urine Appearance Clear (CLEAR,HAZY) Urine pH 5.5 (5.0-8.0) Urine Specific Unity 1.025 (1.003-1.035) Urine Protein Negativemg/dL (NEG,TRACE) Urine Glucose (UA) Negativemg/dL (NEGATIVE) Urine Ketones Negativemg/dL (NEGATIVE) Urine Occult Blood Trace (NEGATIVE) Urine Nitrite Negative (NEGATIVE) Urine Bilirubin Negative (NEGATIVE) Urine Urobilinogen 1.0mg/dL (NORMAL) Urine Leukocyte Esterase Negative (NEGATIVE) Urine RBC 0-2/hpf (0-2) Urine WBC 0-5/hpf (0-5) Urine Epithelial Cells None/hpf (NONE-MOD) Urine Crystals None seen (NONE SEEN) Urine Bacteria None/hpf (NONE-FEW) Urine Hyaline Casts None/lpf (NONE) Urine Granular Casts None seen (NONE SEEN) Urine Waxy Casts None seen (NONE SEEN) Urine Red Blood Cell Casts None seen (NONE SEEN) Urine White Blood Cell Casts None seen (NONE SEEN) Urine Mucus None seen (None Seen) Urine Trichomonas None seen (NONE SEEN) Urine Yeast None (NONE SEEN) Urinalysis Comment None Urine Culture Reflexed Not indicated White Blood Count 8.6th/mm3 (3.8-10.1) Red Blood Count 4.22mil/mm3 (4.40-5.80) Hemoglobin 13.1g/dL (13.8-17.2) Hematocrit 39.0% (41.0-50.0) Mean Corpuscular Volume 92.4fL (81-100) Mean Corpuscular Hemoglobin 31.0pg (27.0-35.0) Mean Corpuscular Hemoglobin Concent 33.6% (32.0-37.0) Red Cell Distribution Width 13.7% (12.3-15.4) Platelet Count 223bil/L (150-400) Neutrophils (%) (Auto) 72.0% (40-74) Lymphocytes (%) (Auto) 15.4% (14-46) Monocytes (%) (Auto) 8.8% (4-12) Eosinophils (%) (Auto) 3.2% (0-5) Basophils (%) (Auto) 0.4% (0-3) Discharge Medications Discharge Medications Metoprolol Succinate ER (Metoprolol Succinate ER) 50 Mg Tab.er.24h 50 MG PO DAILY (Reported) Rivaroxaban (Xarelto) 15 Mg Tablet 15 MG PO Q12H Prescribed by: ASHLEY CARLOS, DO Additional med instructions Please discontinue warfarin Please start taking your Xarelto. 15 mg tablet in the morning 15 mg tablet in the evening As discussed before, due to the inherent difficulty of placing you on warfarin, we will start treating you with Xarelto. You will not need to monitor your INR. This medication however, has not been research in patient who weighs more than 120 kg, thus, there is a risk that we may under treat you. Additionally, we cannot reverse the effects of this medication should you bleed. There is an increase risk of gastrointestinal bleeding as discussed. Please read below for more information. Xarelto (rivaroxaban) is an anticoagulant (blood thinner) that prevents the formation of blood clots. Xarelto is used to prevent or treat a type of blood clot called deep vein thrombosis (DVT), which can lead to blood clots in the lungs (pulmonary embolism ). A DVT can occur after certain types of surgery. What happens if I miss a dose? If you take Xarelto 1 time each day: Take the missed dose as soon as you remember. Take your next dose the following day and stay on your once-daily schedule. Do not take extra medicine to make up the missed dose. If you take Xarelto 2 times each day: Take the missed dose as soon as you remember. You may take 2 doses at the same time to make up a missed dose Xarelto side effects Get emergency medical help if you have any signs of an allergic reaction to Xarelto: hives; difficult breathing; swelling of your face, lips, tongue, or throat. Also seek emergency medical attention if you have symptoms of a spinal blood clot: back pain, numbness or muscle weakness in your lower body, or loss of bladder or bowel control. Call your doctor at once if you have: * easy bruising or bleeding (nosebleeds, bleeding gums, heavy menstrual bleeding ); * pain, swelling, or drainage from a wound or where a needle was injected in your skin; * bleeding from wounds or needle injections, any bleeding that will not stop; * headache, dizziness, weakness, feeling like you might pass out; * urine that looks red, pink, or brown; or * bloody or tarry stools, coughing up blood or vomit that looks like coffee grounds. Common Xarelto side effects may include: * muscle pain; * itching; or * pain in your arms or legs. Followup Plan Discharge Diet: Other (Low carbohydrate diet. ) Discharge Activity: No restrictions Follow-up Provider: Saleem Garcia MD Follow-up with PCP in: 1 week Time spent 50 minutes Attending Statement I have seen and evaluated patient in addition to directly superving care provide by resident physician. I agree with above document. Though Xeralto at this dosage and fequency is above normally recommended, pt's weight is also well beyong maximum for usual dosing. Recommendation made from bariatric specialist of . Though coumadin remains standard of care, given numerous treatment failures due to patients poor mobility and missed INR checks , this still represents a better alternative. risks and possible benefits were reviewed with patient who agree with current plan of action. copies to: Saleem Garcia MD, Phuc H DO Sep 17, 2016 12:58 Jose Morrow DO Sep 18, 2016 11:53
--- NOTE | 2016-09-17 15:20 | NUR ---
[facility] which is 60 tabs per 30 days this is good for 09/17/16-10/18/16. Event # [id number]
== END 2016-09-17 12:45 | disposition home or self-care (01) | DRG 176 ==
LOC: SED 07:41 → OBSVTOIN 11:43 → MPC 11:43
PROVIDERS: ADMIT Family Medicine; ATTEND Family Medicine
DX: I26.99 Other pulmonary embolism without acute cor pulmonale (principal); Z68.45 Body mass index [BMI] 70 or greater, adult; E66.2 Morbid (severe) obesity with alveolar hypoventilation; I48.0 Paroxysmal atrial fibrillation; Z79.01 Long term (current) use of anticoagulants; Z86.718 Personal history of other venous thrombosis and embolism; E78.5 Hyperlipidemia, unspecified; M10.9 Gout, unspecified; Z87.891 Personal history of nicotine dependence; G47.33 Obstructive sleep apnea (adult) (pediatric); I10 Essential (primary) hypertension; Z66 Do not resuscitate; Z91.14 Patient's other noncompliance with medication regimen